=== PATIENT | female | born 1965 | race Caucasian/White ===

== ENCOUNTER → 2020-11-21 | Outpatient (CLI) | payer BC ==
[2020-11-21 09:31] VITALS: BP 159/95; PULSE 73; RESP 18; TEMP 97.9
--- NOTE | 2020-11-21 10:07 | P.GSHP ---
History of Present Illness H&P Date: 11/21/20 Chief Complaint: Abnormal left breast mammogram and ultrasound Ghazala is a 55-year-old female who on a left breast mammogram performed on was noted to have a fairly well-defined mass at the lateral aspect. The mass increased in size as compared to prior mammograms. She subsequently underwent an ultrasound which revealed a hypoechoic structure at the 2 o'clock position measuring 1.5 x 0.8 cm. Her last bilateral mammogram was in February 2020 this did not reveal any lesions of concern in the right breast. Six-month follow-up of the left breast is that which was most recently done. She does not feel any lumps masses or nodules in her breast. She is complaining of some mild discomfort in the lateral aspect of the left breast. It is intermittent and has been noticed since August 2020. She is not complaining of any nipple discharge or skin changes. She is not complaining of any trauma or infection in the breast. She had a cyst removed between her breast many years ago. Her mammogram and ultrasound are reviewed with radiology who f eels that the lesion in the left breast is consistent with a non-worrisome cyst, and there is been minimal change in size since her last radiograph. They suggested the option of watchful waiting is reasonable. Caffeine: 6 cups expresso/day nicotine: none chocolate: occasional Family history: Negative Hormonal history: Menarche:14 breast fed: yes, age at first : 24 menopause: Perimenopausal, last menstrual period July 2020 BCP: none hormones: none Surgical History: Cyst between the breast Cholecystectomy tonsil Medical history: none Social History: smoke: none alcohol: occasional drugs: none - Constitutional Constitutional: Reports sweats, Denies chills, Denies fever - EENT Eyes: denies blurred vision, denies pain Ears: deny: decreased hearing, tinnitus Ears, nose, mouth and throat: Denies headache, Denies sore throat - Breasts Breasts: bilateral: as per HPI - Cardiovascular Cardiovascular: Denies chest pain, Denies shortness of breath - Respiratory Comment: asthma - Gastrointestinal Gastrointestinal: Denies abdominal pain, Denies diarrhea, Denies nausea, Denies vomiting - Genitourinary (Female) Genitourinary: Denies dysuria, Denies hematuria - Menstruation Comment: perimenopausal - Musculoskeletal Musculoskeletal: Denies myalgias - Integumentary Integumentary: Denies pruritus, Denies rash - Neurological Neurological: Denies numbness, Denies weakness - Psychiatric Psychiatric: Denies anxiety, Denies depression - Endocrine Endocrine: Denies fatigue, Denies weight change - Hematologic/Lymphatic Comment: none - Allergic/Immunologic Allergic/Immunologic: Reports seasonal allergies Past Medical History Past Medical History: Asthma, Deep Vein Thrombosis (DVT), GERD/Reflux Additional Past Medical History / Comment(s): BLOOD CLOT AFTER TONSIL SURG YOUNG CHILD, UNSURE WHERE LOCATED. ASTHMA R/T ALLERGIES. GALLSTONES CURRENTLY. ELEV LIVER ENZYMES. History of Any Multi-Drug Resistant Organisms: None Reported Past Surgical History: Cholecystectomy, Orthopedic Surgery, Tonsillectomy, Uterine Ablation Additional Past Surgical History / Comment(s): LT ANKLE SURGERY Past Anesthesia/Blood Transfusion Reactions: No Reported Reaction Past Psychological History: Anxiety Additional Psychological History / Comment(s): R/T PMS Smoking Status: Former smoker Past Alcohol Use History: None Reported, Rare Additional Past Alcohol Use History / Comment(s): quit 2000 Past Drug Use History: None Reported Medications and Allergies Home Medications Medication Instructions Recorded Confirmed Type Albuterol Sulfate [Proair Hfa] 2 puff INHALATION Q4HR PRN 07/03/14 11/21/20 History Omeprazole [PriLOSEC] 20 mg PO AC-[id number] 07/03/14 11/21/20 History valACYclovir HCL [Valtrex] 1,000 mg PO DAILY PRN 07/03/14 11/21/20 History Fexofenadine HCl [Kim Allergy] 60 mg PO DAILY 11/11/20 11/21/20 History Allergies Allergy/AdvReac Type Severity Reaction Status Date / Time latex Allergy GETS COLD Verified 11/11/20 15:16 SORE IF MOUTH TOUCHED W/ LATEX GLOVE dust Allergy Rash/Hives Uncoded 11/11/20 15:16 mold AdvReac Dyspnea Uncoded 11/11/20 15:16 Surgical - Exam Vital Signs Temp Pulse Resp BP Pulse Ox 97.9 F 73 18 159/95 96 11/21/20 09:27 11/21/20 09:27 11/21/20 09:27 11/21/20 09:27 11/21/20 09:27 BMI 30.4 - General well developed, well nourished, no distress - Eyes normal ocular movement - ENT no hearing loss, no congestion - Neck no masses, trachea midline - Respiratory normal expansion, normal respiratory effort, clear to auscultation - Cardiovascular Rhythm: regular Heart Sounds: normal: S1, S2 - Abdomen Abdomen: soft, non tender, no guarding, no rigid, no rebound - Integumentary normal turgor - Neurologic no disoriented, no combative - Musculoskeletal normal gait - Psychiatric oriented to time, oriented to person, oriented to place, speech is normal, memory intact breast exam: BRA: 38B inspection: Bilateral grade 2 ptosis Palpation: Right breast: Multi-positional exam fibrocystic changes, no dominant masses or nodules of concern Right axilla: No adenopathy of concern Left breast: Multiple positional exam fibrocystic changes, no dominant masses or nodules of concern Left axilla: No adenopathy of concern Results Mammogram and ultrasound were reviewed in detail with Dr. Landon. He feels that the lesion is consistent with a benign cyst and stable. He is comfortable to have good ultrasound repeated in 6 months rather than do an aspiration today. Assessment and Plan Assessment: Impression: 1. Fibrocystic breast changes 2. Radiographic abnormality left breast cystic lesion consistent with a simple cyst 3. High caffeine consumption 4. Perimenopausal Plan: 1. After discussion with the patient and her have opted to forego aspiration at this time, she will have repeat bilateral mammogram and left breast ultrasound in 6 months time 2. Physician exam in 6 months time 3. Patient is strongly encouraged to decrease caffeine consumption 4. Patient is felt to be perimenopausal and this was discussed with the patient The characteristics of the lesion of the left breast were discussed with the patient and her . This appears to be consistent with a cystic lesion which may have increased slightly in size. This was reviewed with radiology and radiology felt that it would be safe to wait for 6 months. The patient wishes to wait for 6 months. She does not on aspiration at this time if possible. She understands that the caffeine consumption may be contributing to the fibrocystic changes. Additionally the hormonal changes as she is. Menopausal may be contributing to the discomfort in her breast. She notes any changes she will call us sooner otherwise she will be seen in 6 months. CC: Ortiz Crowell Encounter 30 minutes, time spent in physical examination, review of medical records, and counseling.
== END ==
LOC: WWCWWP 08:59
PROVIDERS: ATTEND Surgery
DX: N60.11 Diffuse cystic mastopathy of right breast (principal); N60.12 Diffuse cystic mastopathy of left breast; J45.909 Unspecified asthma, uncomplicated; K21.9 Gastro-esophageal reflux disease without esophagitis

== ENCOUNTER → 2021-04-03 | Outpatient (CLI) | payer BC ==
--- NOTE | 2021-04-06 09:22 | MM ---
Reason for exam: additional evaluation requested from prior study. Last mammogram was performed 6 months ago. History: Patient is postmenopausal. Took hormonal contraceptives for 16 years beginning at age 16. Physical Findings: Nurse Summary: 0.5cm nodule in the left breast at 2 o'clock (nurse ms). MG 3D Diag Mammo W/Cad ZANDRA Bilateral CC and MLO view(s) were taken. Prior study comparison: October 03, 2020, mammogram, performed at [facility]. February 22, 2020, mammogram, performed at [facility]. February 08, 2020, mammogram, performed at [facility]. October 13, 2018, mammogram, performed at [facility]. There are scattered fibroglandular densities. Left breast nodule persists upper outer quadrant. Ultrasound is recommended. These results were verbally communicated with the patient and result sheet given to the patient on 04/03/21. ASSESSMENT: Incomplete: need additional imaging evaluation, BI-RAD 0 RECOMMENDATION: Ultrasound of the left breast.
--- NOTE | 2021-04-06 09:23 | USB ---
Reason for exam: additional evaluation requested from abnormal screening. History: Patient is postmenopausal. Took hormonal contraceptives for 16 years beginning at age 16. US Breast Limited LT Left limited breast ultrasound including focal area of concern, retroareolar and axilla demonstrates a 1.6 x 1.3 x 0.4cm cystic lesion with septation at 2 o'clock. These results were verbally communicated with the patient and result sheet given to the patient on 04/03/21. ASSESSMENT: Probably benign, BI-RAD 3 RECOMMENDATION: Follow-up diagnostic mammogram of both breasts in 6 months. Ultrasound of the left breast in 6 months.
== END | disposition home or self-care (01) ==
LOC: RADMAMWWP 13:19
PROVIDERS: ATTEND Surgery
DX: N63.21 Unspecified lump in the left breast, upper outer quadrant (principal); Z78.0 Asymptomatic menopausal state; Z79.3 Long term (current) use of hormonal contraceptives
CPT/HCPCS: 77062; 77066

== ENCOUNTER → 2021-10-30 | Outpatient (CLI) | payer BC ==
--- NOTE | 2021-10-30 15:02 | MM ---
Reason for exam: additional evaluation requested from prior study. Last mammogram was performed 7 months ago. History: Patient is postmenopausal and history of other cancer. Took hormonal contraceptives for 16 years beginning at age 16. Physical Findings: Nurse did not find any significant physical abnormalities on exam. MG 3D Diag Mammo W/Cad ZANDRA Bilateral CC and MLO view(s) were taken. XCCL view(s) were taken of the left breast. Prior study comparison: April 03, 2021, bilateral MG 3d diag mammo w/cad ZANDRA. October 03, 2020, mammogram, performed at [facility]. The breast tissue is almost entirely fat. Nodule upper outer left breast is stable. No significant new findings when compared with previous films. These results were verbally communicated with the patient and result sheet given to the patient on 10/30/21. ASSESSMENT: Incomplete: need additional imaging evaluation, BI-RAD 0 RECOMMENDATION: Ultrasound of the left breast.
--- NOTE | 2021-10-30 15:03 | USB ---
Reason for exam: follow-up at short interval from prior study. History: Patient is postmenopausal and history of other cancer. Took hormonal contraceptives for 16 years beginning at age 16. US Breast Limited LT Left limited breast ultrasound including focal area of concern, retroareolar and axilla demonstrates a 1.9 x 0.6 x 1.3cm oval, cystic lesion at 2 o'clock. These results were verbally communicated with the patient and result sheet given to the patient on 10/30/21. ASSESSMENT: Benign, BI-RAD 2 RECOMMENDATION: Routine screening mammogram of both breasts in 6 months. Back on schedule.
== END | disposition home or self-care (01) ==
LOC: RADMAMWWP 13:23
PROVIDERS: ATTEND Internal Medicine
DX: R92.8 Other abnormal and inconclusive findings on diagnostic imaging of breast (principal); Z78.0 Asymptomatic menopausal state
CPT/HCPCS: 77062; 77066

== ENCOUNTER → 2024-03-23 | Outpatient (CLI) | payer BC ==
--- NOTE | 2024-03-25 15:08 | MM ---
Reason for Exam: Screening (asymptomatic). Last mammogram was performed 1 year(s) and 4 month(s) ago. Patient History: Menarche at age 15. First Full-Term at age 24. Postmenopausal. Patient has history of breast feeding. Hormonal Contraceptives for 16 years from age 16 until age 32. Risk Values: Elaina 5 year model risk: 1.1%. NCI Lifetime model risk: 7.2%. Prior Study Comparison: 04/03/2021 Bilateral Diagnostic Mammogram, [facility]. 10/30/2021 Bilateral Diagnostic Mammogram, [facility]. 11/05/2022 Bilateral MG 3D screening mammo w/cad, [facility]. Tissue Density: There are scattered areas of fibroglandular density. Findings: Analyzed By CAD. The pattern is symmetrical. Focal asymmetry is the upper outer left breast, stable. No suspicious groups of microcalcifications, spiculated or lobular masses, architectural distortion or other secondary signs of malignancy are mammographically apparent. Overall Assessment: Benign, BI-RAD 2 Management: Screening Mammogram of both breasts in 1 year. A negative mammogram report should not preclude additional follow up of suspicious palpable abnormalities. Patient should continue monthly self breast exam. A clinical breast exam by your physician is recommended on an annual basis and results should be correlated with mammographic findings. Note on Elaina scores and lifetime risk: 1. A Elaina score greater than 3% is considered moderate risk. If this is the case, consider specialist referral to assess eligibility for a risk reducing agent. 2. If overall lifetime risk for the development of breast cancer is 20% or higher, the patient may qualify for future screening with alternating mammogram and breast MRI. Electronically signed and approved by: Kris Kinsey D.O. Radiologis
== END | disposition home or self-care (01) ==
LOC: RADMAMWWP 12:54
PROVIDERS: ATTEND Obstetrics & Gynecology
DX: Z12.31 Encounter for screening mammogram for malignant neoplasm of breast (principal); R92.323 Mammographic fibroglandular density, bilateral breasts; Z78.0 Asymptomatic menopausal state
CPT/HCPCS: 77063; 77067